=== PATIENT | female | born 1975 | race Caucasian/White ===

== ENCOUNTER 2019-05-06 06:25 | Emergency (ER) | payer OTHER ==
[~2019-05-06] VITALS: Ht 170.2 cm; Wt 145.1 kg
[2019-05-06 06:34] VITALS: BP 163/77
[2019-05-06] MEDS ORDERED: ORPHENADRINE CITRATE 60 MG/2 ML VIAL. IM ONE (07:00)
[2019-05-06] MEDS ORDERED: ONDANSETRON ODT 4 MG TAB.RAPDIS. PO ONE (07:00)
[2019-05-06] MEDS ORDERED: MORPHINE SULFATE 10 MG/ML VIAL. IM ONE (07:00)
[2019-05-06] MEDS ORDERED: HYDR-2163 PO (07:30)
[2019-05-06] MEDS ORDERED: CYCL10TA2 PO (07:30)
--- NOTE | 2019-05-06 07:30 | PHYS DOC ---
Past Medical History Past Medical History: Diabetes-Type II Past Surgical History: No Surgical History Alcohol Use: Occasionally Drug Use: None Adult General Chief Complaint Chief Complaint: BACK PAIN - NO INJURY HPI HPI Patient is a 44 year old male who presents with acute right lower lumbar back pain radiating posteriorly to right leg above the knee. Patient denies repetitive strain injury. Denies motor weakness, loss of sensation, or incontinence. No abdominal pain. Patient has taken ibuprofen with limited relief. Pain is rated moderate to severe worse with palpation and movement. No other acute symptoms or complaints Review of Systems Review of Systems Review symptoms as per history of present illness. All other review symptoms are negative All other systems were reviewed and found to be within normal limits, except as documented in this note. Current Medications Current Medications Current Medications Medications (Trade) Dose Ordered Sig/Nany Start Time Stop Time Status Last Admin Dose Admin Morphine Sulfate (Morphine Sulfate) 10 mg 1X ONCE 05/06/19 07:00 05/06/19 07:01 DC Ondansetron HCl (Zofran Odt) 4 mg 1X ONCE 05/06/19 07:00 05/06/19 07:01 DC Orphenadrine Citrate (Norflex) 60 mg 1X ONCE 05/06/19 07:00 05/06/19 07:01 DC Allergies Allergies Allergies Coded Allergies Type Severity Reaction Last Updated Verified No Known Drug Allergies 05/06/19 No Physical Exam Physical Exam Constitutional: Well developed, well nourished, no acute distress, non-toxic wolf earance. [] HENT: Normocephalic, atraumatic, bilateral external ears normal, oropharynx moist, no oral exudates, nose normal. [] Eyes: PERRLA, EOMI, conjunctiva normal, no discharge. [] Neck: Normal range of motion, no tenderness, supple, no stridor. [] Cardiovascular:Heart rate regular rhythm, no murmur [] Lungs & Thorax: Bilateral breath sounds clear to auscultation [] Abdomen: Bowel sounds normal, soft, no tenderness, no masses, no pulsatile masses. [] Skin: Warm, dry, no erythema, no rash. [] Back: No tenderness, no CVA tenderness. [] Extremities: No tenderness, no cyanosis, no clubbing, ROM intact, no edema. [] Neurologic: Alert and oriented X 3, normal motor function, normal sensory function, no focal deficits noted. [] Psychologic: Affect normal, judgement normal, mood normal. [] Current Patient Data Vital Signs Vital Signs Date Time Temp Pulse Resp B/P (MAP) Pulse Ox O2 Delivery O2 Flow Rate FiO2 05/06/19 06:34 98.4 96 18 163/77 (105) 97 Room Air 98.4 EKG EKG [] Radiology/Procedures Radiology/Procedures [] Course & Med Decision Making Course & Med Decision Making Pertinent Labs and Imaging studies reviewed. (See chart for details) [Reproducible mechanical back pain without neurologic deficits. Symptoms improved with treatment.] Dragon Disclaimer Dragon Disclaimer This electronic medical record was generated, in whole or in part, using a voice recognition dictation system. Departure Departure Impression: Primary Impression: Acute right lumbar radiculopathy Disposition: HOME, SELF-CARE Condition: STABLE Referrals: JOEL KWAN MD (PCP) Patient Instructions: Back Pain, Adult, [id number] Additional Instructions: Please avoid strenuous physical activity and heavy lifting. Take ibuprofen for pain and hydrocodone and Flexeril as needed for additional relief. Follow-up with your PCP in 2-3 days for reevaluation. Return to the ED if new or worsening symptoms Scripts Cyclobenzaprine Hcl (CYCLOBENZAPRINE HCL) 10 Mg Tablet 10 MG PO TID, #30 TAB Prov: SHUKRI JORGE DO 05/06/19 Hydrocodone Bit/Acetaminophen (HYDROCODONE-APAP 5-300) 1 Each Tablet 1 TAB PO PRN BID PRN for pain MDD 2 Tablet(s) for 5 Days, #15 TAB 0 Refills Prov: SHUKRI JORGE DO 05/06/19 SHUKRI JORGE DO May 06, 2019 07:30
== END 2019-05-06 08:11 | disposition home or self-care (01) ==
LOC: ER 06:25
DX: M54.16 Radiculopathy, lumbar region (principal); E11.9 Type 2 diabetes mellitus without complications
CPT/HCPCS: 96372; 99284; J2270; J2360; Q0162